=== PATIENT | female | born 1975 | race Caucasian/White ===

== ENCOUNTER 2017-06-25 10:30 | Outpatient (CLI) | payer OTHER | END 2017-06-25 10:31 | disposition home or self-care (01) | LOC: DI.S 10:30 | PROVIDERS: ATTEND Physician Assistant | DX: Z53.9 Procedure and treatment not carried out, unspecified reason (principal) ==

== ENCOUNTER 2017-08-29 10:07 | Outpatient (CLI) | payer BC, OTHER ==
--- NOTE | 2017-09-01 14:03 | Mammography Report ---
DIGITAL SCREENING MAMMOGRAM: 08/29/2017 CLINICAL INDICATION: 42-year-old with history of late childbearing for screening. COMPARISON: 06/2014, 08/2008, 02/2007. TECHNIQUE: Routine CC and MLO projections as well as bilateral laterally exaggerated craniocaudal views were obtained of the breasts. FINDINGS: Scattered fibroglandular tissue is present within the breasts. There are no dominant masses, suspicious microcalcifications, or secondary signs of malignancy. In comparison to the previous studies, there are no significant changes. IMPRESSION: NO MAMMOGRAPHIC EVIDENCE OF MALIGNANCY. NO SIGNIFICANT INTERVAL CHANGES. RECOMMENDATION: Screening mammography is recommended annually. BIRADS CATEGORY 1 - NEGATIVE. STANDARD QUALIFYING STATEMENTS: 1. This examination was reviewed with the aid of Computed-Aided Detection (CAD) . 2. A negative or benign imaging report should not delay biopsy if clinically suspicious findings are present. Consider surgical consultation if warranted. More than 5 % of cancers are not identified by imaging. 3. Dense breasts may obscure an underlying neoplasm. TD: 09/01/2017 14:03 JUDITH
== END 2017-08-29 10:08 | disposition home or self-care (01) ==
LOC: DI.S 10:07
PROVIDERS: ATTEND Physician Assistant
DX: Z12.31 Encounter for screening mammogram for malignant neoplasm of breast (principal)
CPT/HCPCS: 77067

== ENCOUNTER 2019-10-29 10:18 | Outpatient (CLI) | payer MEDICAID ==
--- NOTE | 2019-11-01 12:26 | Mammography Report ---
BILATERAL DIGITAL SCREENING MAMMOGRAM 3D/2D: 10/29/2019 Comparison is made to exams dated: 08/29/2017 mammogram, 07/05/2014 mammogram, and 08/12/2008 mammogram - [facility]. There are scattered fibroglandular elements in both breasts. No significant masses, calcifications, or other findings are seen in either breast. There has been no significant interval change. IMPRESSION: NEGATIVE There is no mammographic evidence of malignancy. A 1 year screening mammogram is recommended. This exam was interpreted at Station ID: [id number]. NOTE: For mammograms, a report in lay terms will be sent to the patient. Approximately 15% of breast malignancies will not be visualized mammographically. In the management of a palpable breast mass, a negative mammogram must not discourage biopsy of a clinically suspicious lesion. Electronically Signed By: Sarah shepard/miladisrad:10/29/2019 18:36:23 ACR BI-RADS Category 1: Negative 3341F PARENCHYMAL PATTERN: (A) - The breast(s) demonstrate(s) scattered fibroglandular densities. BI-RADS CATEGORY: (1) - 1 RECOMMENDATION: (ANNUAL) - Recommend routine annual screening mammography. [id number] 1 year screening LATERALITY: (B)
== END 2019-10-29 10:19 | disposition home or self-care (01) ==
LOC: DI 10:18
PROVIDERS: ATTEND Registered Nurse
DX: Z12.31 Encounter for screening mammogram for malignant neoplasm of breast (principal)
CPT/HCPCS: 77063; 77067

== ENCOUNTER 2019-11-05 11:30 | Outpatient (CLI) | payer MEDICAID ==
[2019-11-05 16:58] LABS: CANDIDA GROUP DNA NEGATIVE (NEGATIVE); CANDIDA KRUSEI DNA NEGATIVE (NEGATIVE); TRICHOMONAS VAGINALIS DNA NEGATIVE (NEGATIVE)
[2019-11-05 21:29] LABS: TRICHOMONAS VAGINALIS DNA NEGATIVE (NEGATIVE)
== END 2019-11-05 23:59 | disposition home or self-care (01) ==
LOC: LAB.R 11:30
PROVIDERS: ATTEND Family Medicine
DX: N76.0 Acute vaginitis (principal)
CPT/HCPCS: 87491; 87591; 87661; 87801

== ENCOUNTER 2020-01-21 07:01 | Outpatient (CLI) | payer MEDICAID ==
--- NOTE | 2020-01-24 07:20 | Ultrasound Report ---
PROCEDURE: Pelvic w/Transvaginal INDICATIONS: PAIN TECHNIQUE: Real-time scanning was performed of the pelvic organs, with image documentation. Additional endovagi nal scanning was necessary due to incomplete visualization of the adnexal and endometrial structures by transabdominal scanning. COMPARISON: 01/09/2016 FINDINGS: Transabdominal scanning: Limited scanning through the kidneys shows no hydronephrosis. No pathologi c free abdominal or pelvic fluid. There is a healed transverse scar without underlying flu id collection. Endovaginal scanning: Uterus: Uterus is anteverted and normal in size at 11.0 x 4.1 x 5.8 cm. A small amount of fluid in the endocervix. There is also focal hyperechoic vascular lesion within the endocervix measuring about 1.3 x 0.6 x 1.1 cm. There is a probable vascular stalk along the posterior wall. There are small pun ctate rounded echogenic foci within this area. Endometrium measures 11 mm in combined thickness. Ovaries: The right ovary was only seen by transabdominal imaging and measures 3.4 x 1.6 x 2.5 cm for a volume of about 7.3 cc. There is a single 11 mm dominant follicle. The left ovary measures 2.1 x 3.6 x 2.0 cm for a volume of 7.3 cc and contains a dominant follicle me asuring about 2.0 cm. Immediately cranial to the left ovary along the anterior abdominal wall, only i siri on the accompanying abdominal ultrasound, there is an ovoid cyst measuring about 3.3 x 1.5 x 2. 1 cm which corresponds the patient's localized left lower quadrant pain. No adjacent fluid. IMPRESSION: 1. Paraovarian cyst cranial to the left ovary along the anterior abdominal wall measures 3.3 cm and c orresponds the patient's site of tenderness. 2. Incidental note made of 13 mm probable endocervical polyp. Tissue acquisition is recommended. The cervix was not well imaged on the prior study and the chronicity of this finding is unknown. Reviewed by: Sarah Lafleur MD on 01/21/2020 11:40 AM PDT Approved by: Sarah Lafleur MD on 01/21/2020 11:40 AM PDT Station ID: [id number]
== END 2020-01-21 07:02 | disposition home or self-care (01) ==
LOC: DI 07:01
PROVIDERS: ATTEND Family Medicine
DX: N83.8 Other noninflammatory disorders of ovary, fallopian tube and broad ligament (principal); N84.1 Polyp of cervix uteri
CPT/HCPCS: 76700; 76830; 76856

== ENCOUNTER 2020-01-21 08:03 | Outpatient (CLI) | payer MEDICAID ==
--- NOTE | 2020-01-21 11:47 | Ultrasound Report ---
PROCEDURE: Abdomen Complete INDICATIONS: ABDOMINAL PAIN TECHNIQUE: Real-time scanning was performed of the abdominal and retroperitoneal organs, with image documentatio n. COMPARISON: Abdominal ultrasound 10/16/2015 FINDINGS: Liver: Liver is normal in size and homogeneous in echotexture. Gallbladder: The gallbladder demonstrates a normal wall thickness at 3 mm. No sludge. There are nonmo bile, nonshadowing echogenic foci arising along the gallbladder wall measuring 3 and 9 mm. No pericho lecystic fluid or sonographic Mcgill sign. Biliary ducts: Intrahepatic bile ducts are non-dilated. Extrahepatic bile duct caliber measures 3 m m. Normal is 6-7 mm or less in diameter, or 10 mm or less post-cholecystectomy. Pancreas: Visualized portions of the pancreas are sonographically normal. Spleen: Spleen is normal in size and homogeneous in echotexture. Kidneys: Kidneys are normal in size and echotexture. Right kidney measures 11.0 cm long; left kidne y measures 12.1 cm long. No hydronephrosis or nephrolithiasis. No solid masses. Aorta: Visualized aorta is normal in caliber at less than 3 cm. Iliacs: Proximal common iliac arteries are normal in caliber at less than 2.5 cm. IVC: Intrahepatic inferior vena cava is patent. Miscellaneous: No free abdominal fluid. Tender 3.3 cm left paraovarian cyst in the upper anterior l eft adnexa. IMPRESSION: 1. There are 2 discrete gallbladder polyps which were present previously, the larger has grown from 6 to 9 mm. 2. Interval resolution of gallbladder sludge. 3. Tender 3.3 cm anterior left adnexal paraovarian cyst. Reviewed by: Sarah Lafleur MD on 01/21/2020 11:45 AM PDT Approved by: Sarah Lafleur MD on 01/21/2020 11:45 AM PDT Station ID: [id number]
== END 2020-01-21 08:04 | disposition home or self-care (01) ==
LOC: DI 08:03
PROVIDERS: ATTEND Family Medicine
DX: K82.4 Cholesterolosis of gallbladder (principal); N83.8 Other noninflammatory disorders of ovary, fallopian tube and broad ligament; N84.1 Polyp of cervix uteri
CPT/HCPCS: 76700

== ENCOUNTER 2020-02-02 11:34 | Outpatient (CLI) | payer MEDICAID ==
[2020-02-02 11:58] LABS: BASOPHILS % (AUTO) 0.4 %; EOSINOPHILS % (AUTO) 0.4 %; HGB - HEMOGLOBIN 13.8 g/dL (12.0-16.0); LYMPHOCYTES % (AUTO) 23.9 %; MEAN CORPUSCULAR HEMOGLOBIN 31.5 pg (27.0-31.0); MEAN CORPUSCULAR HGB CONC 32.9 g/dL (32.0-36.0); MEAN CORPUSCULAR VOLUME 95.9 fL (81.0-99.0); MEAN PLATELET VOLUME 11.2 fL (7.9-10.8); MONOCYTES # (AUTO) 0.3 10^3/uL (0.0-1.0); MONOCYTES % (AUTO) 4.1 %; NEUTROPHILS # (AUTO) 5.9 10^3/uL (1.5-6.6); NEUTROPHILS % (AUTO) 70.7 %; PLT - PLATELET COUNT 247 10^3/uL (130-450); RED BLOOD COUNT 4.38 10^6/uL (4.20-5.40); RED CELL DISTRIBUTION WIDTH 11.9 % (12.0-15.0); WHITE BLOOD COUNT 8.3 x10^3/uL (4.8-10.8)
[2020-02-02 12:51] LABS: HCG,QUALITATIVE BLOOD NEGATIVE
== END 2020-02-02 11:35 | disposition home or self-care (01) ==
LOC: LAB 11:34
PROVIDERS: ATTEND Family Medicine
DX: R10.2 Pelvic and perineal pain (principal)
CPT/HCPCS: 36415; 84703; 85025

== ENCOUNTER 2020-02-07 07:08 | Outpatient (CLI) | payer MEDICAID ==
--- NOTE | 2020-02-07 07:55 | XRAY Report ---
PROCEDURE: Chest 2 View X-Ray INDICATIONS: CHEST TIGHTNESS TECHNIQUE: 2 view(s) of the chest. COMPARISON: None. FINDINGS: Surgical changes and devices: None. Lungs and pleura: No pleural effusions or pneumothorax. Lungs are clear. Mediastinum: Mediastinal contours are normal. Heart size is normal. Bones and chest wall: No suspicious bony abnormalities. Soft tissues appear unremarkable. IMPRESSION: No acute cardiopulmonary abnormality. Reviewed by: Stewart Nguyen MD on 02/07/2020 7:53 AM PDT Approved by: Stewart Nguyen MD on 02/07/2020 7:53 AM PDT Station ID: [id number]
== END 2020-02-07 07:09 | disposition home or self-care (01) ==
LOC: DI.S 07:08
PROVIDERS: ATTEND Registered Nurse
DX: R07.89 Other chest pain (principal)
CPT/HCPCS: 71046

== ENCOUNTER 2020-03-01 10:28 | Emergency (ER) | payer MEDICAID ==
[2020-03-01] MEDS ORDERED: KETOROLAC 30 MG/ML VIAL IVP STA (10:48)
--- NOTE | 2020-03-01 10:51 | ED Physician Documentation ---
PD HPI ABD PAIN - Stated complaint Stated Complaint: ABDOMINAL/BACK PX - History obtained from History obtained from: Patient - Additional information Additional information: 44-year-old woman who has had 2 C-sections in the past, the second was complicated by internal bleeding with hemorrhagic shock necessitating reopening of the incision as well as an exploratory laparotomy. Over the last month or 2 she has had progressive lower abdominal pain with a backache. She has been seen in the clinic and had labs done a CBC and a test that were normal. She had abdominal and pelvic sonography showing an endocervical polyp and a 3.3 cm left paraovarian cyst. She has an appointment for preop with the sales associate cashier and subsequently an appointment for the OR on March 16 for what sounds like hysteroscopy and biopsy of the polyp. She denies vaginal bleeding. Last menses was about the of last month. She is not on control but she has been abstinent. Denies vaginal discharge. No urinary complaints. Her bowel movements have been a little different than normal, sometimes looser and sometimes harder. Pain does not seem to change much with eating. Review of Systems Ten Systems: 10 systems reviewed and negative Constitutional: denies: Fever, Chills, Fatigue Cardiac: denies: Chest pain / pressure, Palpitations Respiratory: denies: Dyspnea, Cough GI: reports: Abdominal Pain, Constipation, Diarrhea. denies: Nausea, Vomiting : denies: Dysuria, Frequency Musculoskeletal: reports: Back pain PD PAST MEDICAL HISTORY - Past Medical History Cardiovascular: None Respiratory: None Endocrine/Autoimmune: None GI: None MANAGER AVIATION: None : None HEENT: None Psych: None Musculoskeletal: None Derm: None - Past Surgical History Past Surgical History: Yes Ortho: Rotator cuff repair /MANAGER AVIATION: section - Present Medications Home Medications: Ambulatory Orders Medication Instructions Recorded Confirmed Hydrocodone/Acetaminophen [Vicodin 1 - 2 each PO Q6HR PRN #12 tablet 05/28/14 5-300 mg Tablet] Dicyclomine HCl 20 mg PO QID PRN #15 tablet 03/01/20 - Allergies Allergies/Adverse Reactions: Allergies Allergy/AdvReac Type Severity Reaction Status Date / Time No Known Drug Allergies Allergy Verified 03/01/20 10:53 - Social History Does the pt smoke?: No Smoking Status: Never smoker Does the pt drink ETOH?: Yes Does the pt have substance abuse?: No - Immunizations Immunizations are current?: Yes - POLST Patient has POLST: No PD ED PE NORMAL - Vitals Vital signs reviewed: Yes - General General: Alert and oriented X 3, No acute distress - HEENT HEENT: PERRL, EOMI - Neck Neck: Supple, no meningeal sign, No bony TTP - Cardiac Cardiac: RRR, No murmur - Respiratory Respiratory: No respiratory distress, Clear bilaterally - Abdomen Abdomen: Normal bowel sounds, Soft, Non tender - Back Back: No CVA TTP, No spinal TTP - Derm Derm: Normal color, Warm and dry - Extremities Extremities: No edema, No calf tenderness / cord - Neuro Neuro: Alert and oriented X 3, Normal speech Results - Vitals Vitals: Vital Signs - 24 hr 03/01/20 10:35 Temperature 37.1 C Heart Rate 86 Respiratory 20 Rate Blood Pressure 128/85 H O2 Saturation 100 Oxygen O2 Source Room air - Labs Labs: Laboratory Tests 03/01/20 03/01/20 03/01/20 11:04 11:04 11:10 WBC 8.2 RBC 4.44 Hgb 13.8 Hct 42.1 MCV 94.8 MCH 31.1 H MCHC 32.8 RDW 11.9 L Plt Count 229 MPV 11.0 H Neut # (Auto) 6.1 Lymph # (Auto) 1.6 [place] # (Auto) 0.5 Eos # (Auto) 0.0 Baso # (Auto) 0.0 Absolute Nucleated RBC 0.00 Nucleated RBC % 0.0 Sodium 138 Potassium 3.4 L Chloride 101 Carbon Dioxide 22 Anion Gap 15.0 H BUN 14 Creatinine 0.6 Estimated GFR (MDRD) 109 Glucose 102 H Calcium 9.5 Total Bilirubin 1.4 H AST 16 ALT 12 Alkaline Phosphatase 49 Total Protein 7.5 Albumin 4.5 Globulin 3.0 Albumin/Globulin Ratio 1.5 Lipase 26 Urine Color YELLOW Urine Clarity HAZY Urine pH 6.0 Ur Specific [place] 1.020 Urine Protein NEGATIVE Urine Glucose (UA) NEGATIVE Urine Ketones NEGATIVE Urine Occult Blood NEGATIVE Urine Nitrite NEGATIVE Urine Bilirubin NEGATIVE Urine Urobilinogen 0.2 (NORMAL) Ur Leukocyte Esterase NEGATIVE Urine RBC None Seen Urine WBC 0-3 Ur Squamous Epith Cells FEW Squamous Urine Bacteria Rare Urine Mucus Few Strands Ur Microscopic Review INDICATED Urine Culture Comments NOT INDICATED Urine HCG, Qual NEGATIVE - Rads (name of study) CT A/P Radiology: EMP read contemporaneously (Hepatic steatosis, potential mild colitis, previously seen ovarian cyst is not noted.) PD MEDICAL DECISION MAKING - ED course ED course: 44-year-old woman with subacute complaints of bloating, abdominal and back pain, some changes in bowel movements. She has a benign exam. Labs only notable for very modest elevation in bilirubin may be related to hepatic steatosis seen on CT. Potential mild colitis on CT as well. Differential diagnosis still includes irritable or inflammatory bowel disease. Other pelvic issues. Has appointment with gynecology coming up and in the interim we will start some Bentyl as a trial pending follow-up with PCP for referral to surgery for consideration of colonoscopy. Departure - Departure Disposition: 01 Home, Self Care Clinical Impression: Abdominal pain Condition: Good Record reviewed to determine appropriate education?: Yes Instructions: ED Abdominal Pain Unkn Cause Prescriptions: Dicyclomine HCl 20 mg PO QID PRN #15 tablet PRN Reason: Abdominal Pain Comments: Talk with your doctor about a referral to a surgeon for consideration of colonoscopy, also consider further work-up on gallbladder polyp seen on previous studies. Return for new or worsening symptoms.
[2020-03-01] MEDS ORDERED: IOVERSOL 320 100 ML VIAL IVP ONE ×2 (11:07→19:01)
[2020-03-01 11:15] LABS: BASOPHILS % (AUTO) 0.4 %; EOSINOPHILS % (AUTO) 0.2 %; HGB - HEMOGLOBIN 13.8 g/dL (12.0-16.0); LYMPHOCYTES # (AUTO) 1.6 10^3/uL (1.5-3.5); LYMPHOCYTES % (AUTO) 18.9 %; MEAN CORPUSCULAR HEMOGLOBIN 31.1 pg (27.0-31.0); MEAN CORPUSCULAR HGB CONC 32.8 g/dL (32.0-36.0); MEAN CORPUSCULAR VOLUME 94.8 fL (81.0-99.0); MONOCYTES # (AUTO) 0.5 10^3/uL (0.0-1.0); MONOCYTES % (AUTO) 5.5 %; NEUTROPHILS # (AUTO) 6.1 10^3/uL (1.5-6.6); NEUTROPHILS % (AUTO) 74.6 %; PLT - PLATELET COUNT 229 10^3/uL (130-450); RED BLOOD COUNT 4.44 10^6/uL (4.20-5.40); RED CELL DISTRIBUTION WIDTH 11.9 % (12.0-15.0); WHITE BLOOD COUNT 8.2 x10^3/uL (4.8-10.8)
[2020-03-01 11:28] LABS: ALBUMIN 4.5 g/dL (3.2-5.5); ALBUMIN/GLOBULIN RATIO 1.5 (1.0-2.2); BILIRUBIN,TOTAL 1.4 mg/dL (0.2-1.0); CALCIUM 9.5 mg/dL (8.5-10.3); CREATININE 0.6 mg/dL (0.4-1.0); TOTAL PROTEIN 7.5 g/dL (6.7-8.2)
[2020-03-01 11:40] LABS: BILIRUBIN,URINE NEGATIVE (NEGATIVE); GLUCOSE, URINE (UA) NEGATIVE (NEGATIVE); KETONES,URINE (UA) NEGATIVE (NEGATIVE); LEUKOCYTE ESTERASE, URINE NEGATIVE (NEGATIVE); NITRITE,URINE NEGATIVE (NEGATIVE); OCCULT BLOOD,URINE NEGATIVE (NEGATIVE); PROTEIN,URINE NEGATIVE (NEGATIVE); UROBILINOGEN,URINE 0.2 (NORMAL) E.U./dL (NORMAL)
[2020-03-01 11:50] LABS: CLARITY,URINE HAZY (CLEAR)
[2020-03-01 11:51] LABS: HCG UR QUAL NEGATIVE
[2020-03-01 12:12] LABS: RBC,URINE None Seen /HPF (0-5)
[2020-03-01 12:13] LABS: BACTERIA,URINE Rare /HPF (None Seen); MUCUS,URINE Few Strands; SQUAMOUS EPITHELIAL CELL,UR FEW Squamous (<= Few)
--- NOTE | 2020-03-01 12:37 | CT Report ---
PROCEDURE: Abdomen/Pelvis W INDICATIONS: 44-year-old woman with lower abd pain. CONTRAST: IV CONTRAST: Optiray 320 ml: 100 PO CONTRAST: *NO PO CONTRAST TECHNIQUE: After the administration of IV contrast, 5 mm thick sections acquired from the diaphragms to the symp hysis. 5 mm thick coronal and sagittal reformats were acquired. For radiation dose reduction, the f ollowing was used: automated exposure control, adjustment of mA and/or kV according to patient size. COMPARISON: Ultrasound abdomen, 01/21/2020. Ultrasound pelvis, 01/21/2020. FINDINGS: Image quality: Excellent. ABDOMEN: Lung bases: Linear densities in the lingula are likely atelectasis. Heart size is normal. Solid organs: Mild hepatic steatosis. Liver and spleen are normal in size and enhancement. Gallblad ana is normal. Uterus is normal. Biliary system is non dilated. Pancreas enhances normally. No adr enal nodules. Kidneys demonstrate normal size and enhancement, without hydronephrosis. Peritoneum and bowel: There is appearance of mild diffuse colonic wall thickening involving the hepa tic flexure, transverse colon, splenic fracture, descending colon and sigmoid colon. Bowel loops demo nstrate normal caliber. No free fluid or air. Nodes and vessels: No retroperitoneal or mesenteric adenopathy by size criteria. Aorta and inferior vena cava are normal in size. Miscellaneous: No ventral hernias. PELVIS: Genitourinary: The uterus is unremarkable. No adnexal mass. No free fluid in pelvis. Bladder wall th ickness is normal. Miscellaneous: No inguinal hernias or adenopathy. Bones: No suspicious bony lesions. No vertebral body compression fractures. IMPRESSION: 1. Appearance of mild diffuse colonic wall thickening involving the hepatic flexure, transverse colon , splenic fracture, descending colon and sigmoid colon, suggesting mild colitis. Alternatively, the f inding could be caused by artifact due to inadequate distention. Recommend clinical correlation. 2. The 3.3 cm left paraovarian described on ultrasound is not visualized on the current CT. No pathol ogical free fluid in pelvis. 3. Mild hepatic steatosis. Reviewed by: Yue Sanchez MD on 03/01/2020 12:36 PM PDT Approved by: Yue Sanchez MD on 03/01/2020 12:36 PM PDT Station ID: [id number]
[2020-03-01 12:55] VITALS: BP 120/78
== END 2020-03-01 13:02 | disposition home or self-care (01) ==
LOC: ED 10:28
DX: R10.2 Pelvic and perineal pain (principal); K76.0 Fatty (change of) liver, not elsewhere classified; N84.0 Polyp of corpus uteri; N83.202 Unspecified ovarian cyst, left side; K59.00 Constipation, unspecified
CPT/HCPCS: 36415; 74177; 80053; 81001; 81025; 83690; 85025; 96374; 99284; Q9967; 81003; 87086

== ENCOUNTER 2020-03-08 17:04 | Outpatient (CLI) | payer MEDICAID ==
--- NOTE | 2020-03-09 16:50 | XRAY Report ---
PROCEDURE: Lumbar Spine 2 View INDICATIONS: BACK PAIN TECHNIQUE: 3 views of the lumbar spine were acquired. COMPARISON: None. FINDINGS: Bones: 5 [id number] vertebrae are present. There is minimal retrolisthesis at L1-L2 and L2-L3. No vertebral body compression fractures. No suspicious bony lesions. Disc spaces appear preserved. Soft tissues: Overlying bowel gas pattern is normal. No suspicious soft tissue calcifications. IMPRESSION: 1. Minimal retrolisthesis at L1-L2 and L2-L3. Reviewed by: Rudi Bonner MD on 03/09/2020 4:49 PM PDT Approved by: Rudi Bonner MD on 03/09/2020 4:49 PM PDT Station ID: [id number]
== END 2020-03-08 17:05 | disposition home or self-care (01) ==
LOC: DI.S 17:04
PROVIDERS: ATTEND Internal Medicine
DX: M43.16 Spondylolisthesis, lumbar region (principal); K92.1 Melena; R10.9 Unspecified abdominal pain
CPT/HCPCS: 36415; 72100; 82378

== ENCOUNTER 2020-03-14 11:53 | Outpatient (CLI) | payer MEDICAID ==
[2020-03-14 12:12] LABS: BASOPHILS # (AUTO) 0.1 10^3/uL (0.0-0.1); BASOPHILS % (AUTO) 0.5 %; EOSINOPHILS # (AUTO) 0.1 10^3/uL (0.0-0.7); EOSINOPHILS % (AUTO) 0.5 %; HGB - HEMOGLOBIN 13.5 g/dL (12.0-16.0); LYMPHOCYTES # (AUTO) 2.9 10^3/uL (1.5-3.5); MEAN CORPUSCULAR HEMOGLOBIN 31.1 pg (27.0-31.0); MEAN CORPUSCULAR HGB CONC 32.3 g/dL (32.0-36.0); MEAN CORPUSCULAR VOLUME 96.3 fL (81.0-99.0); MONOCYTES # (AUTO) 0.8 10^3/uL (0.0-1.0); NEUTROPHILS # (AUTO) 9.4 10^3/uL (1.5-6.6); NEUTROPHILS % (AUTO) 70.3 %; PLT - PLATELET COUNT 339 10^3/uL (130-450); RED BLOOD COUNT 4.34 10^6/uL (4.20-5.40); RED CELL DISTRIBUTION WIDTH 11.9 % (12.0-15.0); WHITE BLOOD COUNT 13.3 x10^3/uL (4.8-10.8)
== END 2020-03-14 11:54 | disposition home or self-care (01) ==
LOC: LAB 11:53
PROVIDERS: ATTEND Obstetrics & Gynecology
DX: Z01.812 Encounter for preprocedural laboratory examination (principal); N84.0 Polyp of corpus uteri; N94.5 Secondary dysmenorrhea; N94.3 Premenstrual tension syndrome; Z20.828 Contact with and (suspected) exposure to other viral communicable diseases
CPT/HCPCS: 36415; 85025

== ENCOUNTER 2020-03-16 06:35 | Day surgery (SDC) | payer MEDICAID ==
[~2020-03-16 06:35] MED LIST: ACETAMINOPHEN 1,000 MG/100 ML 100 ML IV ONE; CELECOXIB 100 MG CAPSULE PO ONE; GABAPENTIN 400 MG CAPSULE ONE
[2020-03-16] MEDS ORDERED: SILVER NITRATE APPLICATOR TOP ONE ×2 (06:58→09:04)
[2020-03-16] MEDS ORDERED: BUPIVACAINE 0.5% PF 30 ML VIAL ONE (06:58)
[2020-03-16 07:01] LABS: HCG UR QUAL NEGATIVE
[2020-03-16] MEDS ORDERED: LACTATED RINGERS 1,000 ML IV ONE (07:12)
[2020-03-16] MEDS ORDERED: KETAMINE 500 MG/10 ML VIAL IVP ONE (07:39)
[2020-03-16] MEDS ORDERED: fentaNYL 100 MCG/2 ML VIAL IVP ONE (07:39)
[2020-03-16] MEDS ORDERED: ACETAMINOPHEN 1,000 MG/100 ML 100 ML IV ONE (07:39)
[2020-03-16] MEDS ORDERED: MIDAZOLAM 2 MG/2 ML VIAL IVP ONE (07:39)
[2020-03-16] MEDS ORDERED: PROPOFOL 200 MG/20 ML VIAL IVP ONE (07:39)
[2020-03-16] MEDS ORDERED: NALOXONE 0.4 MG/ML VIAL IVP PRN (07:40)
[2020-03-16] MEDS ORDERED: fentaNYL 100 MCG/2 ML VIAL IVP PRN (07:40)
[2020-03-16] MEDS ORDERED: METOCLOPRAMIDE 10 MG/2 ML VIAL IVP PRN (07:40)
[2020-03-16] MEDS ORDERED: ATROPINE ABBOJECT 1 MG/10 ML SYRINGE IVP PRN (07:40)
[2020-03-16] MEDS ORDERED: ONDANSETRON 4 MG/2 ML VIAL IVP PRN (07:40)
[2020-03-16] MEDS ORDERED: MORPHINE 2 MG/ML CARPUJECT IVP PRN (07:40)
[2020-03-16] MEDS ORDERED: ePHEDrine 50 MG/ML VIAL IVP PRN (07:40)
[2020-03-16] MEDS ORDERED: HYDROmorphone 0.5 MG/0.5 ML SYRINGE IVP PRN (07:40)
--- NOTE | 2020-03-16 07:40 | ANESTHESIA ---
Pre-Anesthesia VS, & Labs - Diagnosis uterine polyps - Procedure Hysteroscopy, D&C Polypectomy Vital Signs: Temp Pulse Resp BP Pulse Ox 37.2 C 84 16 138/91 H 100 03/16/20 06:51 03/16/20 06:51 03/16/20 06:51 03/16/20 06:51 03/16/20 06:51 Height: 5 ft 6 in Weight (kg): 67.7 kg Body Mass Index: 24.0 BMI Classification: Healthy weight - NPO >8 hours - Is Patient ?: No - Lab Results Current Lab Results: Laboratory Tests 03/16/20 07:08: POC Whole Bld Glucose 96 Lab results reviewed: Yes Home Medications and Allergies Home Medications: Ambulatory Orders predniSONE [Prednisone] 10 - 20 mg PO DAILY 03/15/20 predniSONE [Prednisone] 10 - 20 mg PO DAILY 03/15/20 Allergies/Adverse Reactions: Allergies Allergy/AdvReac Type Severity Reaction Status Date / Time No Known Drug Allergies Allergy Verified 03/01/20 10:53 Anes History & Medical History - Anesthetic History Anesthesia Complications: reports: No previous complications Family history of Anesthesia Complications: Denies Family history of Malignant Hyperthermia: Denies - Medical History Cardiovascular: reports: None Pulmonary: reports: None Gastrointestinal: reports: None Urinary: reports: None Musculoskeletal: reports: None Endocrine/Autoimmune: reports: None Blood Disorders: reports: None Skin: reports: None Smoking Status: Never smoker - Surgical History General: Other Gynecologic: section Orthopedic: Rotator cuff repair Exam General: Alert, Oriented x3, Cooperative, No acute distress Dental: WNL Mouth Openin Fingerbreadth Neck Mobility: Normal Mallampati classification: II Respiratory: Lungs clear, Normal breath sounds, No respiratory distress, No accessory muscle use Cardiovascular: Regular rate, Normal S1, Normal S2, No murmurs Plan Anesthesia Type: MAC Consent for Procedure(s) Verified and Reviewed: Yes Code Status: Attempt Resuscitation ASA classification: 1-Healthy patient Is this case an emergency?: No
[2020-03-16] MEDS ORDERED: LACTATED RINGERS 1,000 ML IV SCH (08:00)
[2020-03-16] MEDS ORDERED: BUPIVACAINE 0.5% PF 30 ML VIAL SUBQ ONE ×2 (08:28→08:51)
[2020-03-16] MEDS ORDERED: LACTATED RINGERS 800 ML IV ONE (09:05)
[2020-03-16] MEDS ORDERED: oxyCODONE 5 MG TABLET PO PRN (09:22)
--- NOTE | 2020-03-16 09:34 | OPERATIVE REPORT ---
Operative Report - General Procedure Date: 03/16/20 Planned Procedure: Hysteroscopy D&C with possible polypectomy/myomectomy/excision of scar tissue Pre-Op Diagnosis: Dysfunctional uterine bleeding/pelvic pain Procedure Performed: Hysteroscopy D&C with excision of scar tissue Post Op Diagnosis: same - Procedure Note Primary Surgeon: Janee Underwood MD Anesthesia Provider: Matt Cruz CRNA Anesthesia Technique: Local, MAC Pathology: uterine contents IV Fluids (mL): 1,000 Estimated Blood Loss (mL): 10 Urine Output (mL): 200 Indications: Patient is a 44 yo here for hysteroscopy D&C with polypectomy. US 01/21/20: Uterus 11cm with a 13mm polyp likely. Endometrium 11mm. Since 4y ago, cycles have become difficult with bloating, excessive blood loss, dysmenorrhea. Impacting life and work. Uses a diva cup, volume is "incredibile" changing the cup q2h, the medium cup. . 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 Using a heating pad, if in bad pain will do ibuprofen but it doesn't seem to help much. Just "suffers through it". US 01/21/20: Uterus 11cm with a 13mm polyp likely. Endometrium 11mm. Patient has considered her options and wants to proceed with minimally invasive procedures. Findings: Lower uterine segment was fixed close with a small orifice, opening obscured by apparent scar tissue. (Suspect uterus was sutured close during prior post-op complications after prior .) Scar tissue released with Myosure and opened to reveal uterine cavity. Normal appearing uterine cavity with thick endometrium. Bilateral tubal ostia visualized. Lower uterine segment and endocervical canal patent postprocedure. Complications: None - Other Other Information/Narrative: Risks benefits and alternatives to the procedure were reviewed. Consent was again confirmed. Patient was taken to the operating room where she underwent general anesthesia. She was positioned in dorsolithotomy position with legs resting in yellowfin stirrups. She was prepped and draped in the usual sterile fashion. Preoperative antibiotics were not indicated. Preoperative checklist was performed. Exam under anesthesia was performed. Speculum was placed in the vagina and the cervix was visualized. Single-tooth tenaculum was placed at the anterior cervical lip. Paracervical block was administered using a total of 20 cc of 0.5% bupivicaine with epinephrine was injected at the 4:00 and 8:00 positions lateral to the portio of the cervix. The cervical os was serially dilated with Hegar dilators to accommodate the caliber of the diagnostic hysteroscope. Uterus sounded to 9 cm. The hysteroscope was inserted and findings were noted as above. The hysteroscopic morcellator was inserted through the operative port. The scar tissue in the lower uterine sgement were morcellated under direct visualization. Once scar tissue was released, the endocervical canal became patent and the uterine cavity was accessible. D&C was performed under direct visualization with the Myosure morcellator. Uterine cavity was smooth at close of the procedure. Hysteroscope was removed. All instruments were removed from the uterus. Tenaculum was removed. Tenaculum sites were noted to be hemostatic after application of direct pressure and silver nitrate. All instruments were removed from the vagina. Procedure was well-tolerated without complication. Fluid deficit: 270 cc NS
[2020-03-16 10:03] VITALS: BP 136/82
--- NOTE | 2020-03-16 10:41 | ANESTHESIA POST OP EVALUATION ---
Anesthesia Post Eval - Post Anesthesia Eval Vitals: Last Vital Signs Temp 36.8 C 03/16/20 10:02 Pulse 69 03/16/20 10:02 Resp 16 03/16/20 10:02 BP 136/82 H 03/16/20 10:02 Pulse Ox 100 03/16/20 10:02 CV Function Including HR & BP: positive: Stable Pain Control: positive: Satisfactory Nausea & Vomiting: positive: Negative Mental Status: positive: Baseline Hydration Status: Satisfactory Anesthesia Complications: positive: None
--- NOTE | 2020-03-22 13:50 | HISTORY & PHYSICAL EXAMINATION ---
HPI - History of Present Illness HPI Comment/Other: CC: uterine polyp, dysmenorrhea, PMDD HPI: Pt is here today for a preop consult for a hysteroscopy D&C ...................................................................SARA Ronquillo March 07, 2020 3:07 PM Patient is a 44 yo here for preoperative assessment for hysteroscopy D&C with polypectomy. Patient was last seen in clinic on 02/09/[address] Licea. The following hx was relayed: US 01/21/20: Uterus 11cm with a 13mm polyp likely. Endometrium 11mm. Left paraovarian cyst 3.3cm. HCG neg, Hct 42 Since 4y ago, cycles have become difficult. The week before gets an anxiety flare that is hard to manage. Lots of bloating and blood loss. Bad cramping. Impacting life and work. Thought maybe a hyst would be a good idea. Menses last 5d. Generally monthly but days can fluctuate. One 9d cycle. Uses a diva cup, volume is "incredibile" changing the cup q2h, the medium cup. Flow is that heavy for a few days. No bleeding between menses. Hx of anxiety, has tried meds in the past including daily meds and CBD. Nothing seems to work except for benzos taken PRN. Recent providers have declined to Rx more. During the week prior to menses has panic attacks 1-2x. Lots of stress with 202 and with 's brain injury. Feels hormonally off the week before. 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 Using a heating pad, if in bad pain will do ibuprofen but it doesn't seem to help much. Just "suffers through it". Patient has considered her options and wants to proceed with minimally invasive procedure with hysteroscopy D&C/polypectomy. Has a lot of anxiety due to prior postop complications. Has significant anxiety and will likely need anxiolytics in preop. No change in health hx since time of prior exam. Allergies: * WHEAT (Critical) * COW MILK (Critical) * SOY (Critical) Medications: CELECOXIB 200 MG ORAL CAPSULE (CELECOXIB) Take one capsule by mouth once daily with food for arthritis or pain; Route: ORAL PREDNISONE 20 MG ORAL TABLET (PREDNISONE) three tablets orally qd; Route: ORAL ALPRAZOLAM 0.5 MG TABS (ALPRAZOLAM) take 1 tablet by mouth once daily if needed for PANIC ATTACKS PREDNISONE 10 MG ORAL TABLET (PREDNISONE) Take 4 tabs by mouth for 4 days, then 3 for 4 days, then 2 for 4 days, then 1 for 4 days, then stop; Route: ORAL DICYCLOMINE HCL 20 MG ORAL TABLET (DICYCLOMINE HCL) Take one tab by mouth up to four times daily; Route: ORAL * BLOOD BUILDER TABLET Take one tab by mouth daily MULTIVITAMIN ADULT ORAL TABLET (MULTIPLE VITAMINS-MINERALS) Take one tab by mouth daily; Route: ORAL FLONASE ALLERGY RELIEF 50 MCG/ACT NASAL SUSPENSION (FLUTICASONE PROPIONATE) Take one spray in each nostril once daily for allergies; Route: NASAL Problems: Preoperative exam (ICD-V72.84) (UDH90-D71.818) Abdominal swelling (ICD-789.30) (GAY78-A31.00) Sacroiliac pain (ICD-724.6) (PJC35-D03.3) Back pain (ICD-724.5) (FOT22-U38.9) Abdominal pain (ICD-789.00) (BPR53-N18.9) Blood in stool (ICD-578.1) (HSW05-O62.1) Screening for cervical cancer (ICD-V76.2) (DQN05-U56.4) Screening examination for venereal disease (ICD-V74.5) (VDQ06-P52.3) PMDD (ICD-625.4) (KBG58-I79.3) Uterine polyp (ICD-621.0) (OEO14-A23.0) Secondary dysmenorrhea (ICD-625.3) (BOA52-C06.5) Anemia (ICD-285.9) (IHA51-S77.9) Shortness of breath (SOB) (ICD-786.05) (SJM51-W40.02) Chest tightness (ICD-786.59) (KGV86-L13.89) DUB (ICD-626.8) (GPR98-I66.8) Family history of breast cancer (ICD-V16.3) (JZO73-Q70.3) Breast lump (ICD-611.72) (PRC61-Q31.0) Pelvic pain (ICD-625.9) (IXM58-R49.2) Vaginitis (ICD-616.10) (JOZ50-C78.0) Anxiety (ICD-300.00) (RPP03-T57.9) Osteopenia (ICD-733.90) (FHK80-N18.80) Preventive care (ICD-V70.0) (VWT63-F55.00) Blood in stool (ICD-578.1) (EDF37-X75.1) Diarrhea, recurrent (ICD-787.91) (COT83-R27.7) Constipation (ICD-564.00) (RBF05-T02.00) Abdominal pain (ICD-789.00) (EGZ33-R04.9) Risk Factors: Smoked Tobacco Use: Former smoker Cigarettes: Yes Years Smoked: 2 Smokeless Tobacco Use: Never Passive Smoke Exposure: no Exercise: yes Type of Exercise: hike, bike, paddle Seatbelt Use: 100 % Sun Exposure: frequently Alcohol Use: yes Vital Signs: Patient Profile: 44 Years Old Female Height: 66.5 inches Weight: 151 pounds BMI: 24.09 BP sittin / 78 Cuff size: regular Vitals Entered By: SARA Ronquillo (March 07, 2020 3:08 PM) Meds Reviewed: Done Allergies Reviewed: Done Past Medical History: Rotator cuff Night sweats Tinnitus Constipation Diarrhea Osteopenia Last Pap . Mammo 2017 Food allergies to wheat, milk, soy gall bladder polyps Anxiety Fibrocystic Breasts Headache/Migraine Ovarian Cysts Past Surgical History: x 2 Complication of 2nd requiring vertical incision laparotomy for a bleed with hemoperitoneum.. Had a full-body blood transfusion after 5L EBL. 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 Physical Constitutional: GEN: NAD HEAD: NCAT EYES: No scleral icterus or conjunctival injection NECK: No cervical LAD or TM CV: RRR RESP: CTAB, normal effort ABD: S&NT/ND PSYCH: appropriate affect NEURO: alert and oriented, normal gait and coordination EXT: WWP Impression & Recommendations: Problem # 1: Preoperative exam (ICD-V72.84) (FJM21-H16.818) Reviewed risks/benefits/alternatives to hysteroscopy/polpectomy Risks include, but are not limited to, bleeding, infection, damage to neatby tissue and organs. On average, expected EBL is minimal. In the event of an unanticipated blood loss, patient is willing to undergo transfusion. Risks of blood transfusion include infection as well as transfusion reaction Risk of HIV 1/2million nationwide Risk of Hepatitis 1/1 million Risks of transfusion reaction and mgt reviewed Infection risk low given that no incisions yamlika be made and we will be using physiologic orifices. Will provide IV abx in the event of uterine perforation. Damage to nearby tissue and organs was reviewed with emphasis on uterine perforation and management, which can include surgical intervention based on bleeding risk. Reviewed management of complications and efforts to avoid such outcomes but reviewed that they may occur despite our best efforts Patient was in agreement and written informed consent was obtained. PMH/PSH - Past Medical History Cardiovascular: positive: None Respiratory: positive: None Endocrine/Autoimmune: positive: None GI: positive: None COMMISSION FOR THE BLIND DIRECTOR: positive: None : positive: None HEENT: positive: None Psych: positive: None Musculoskeletal: positive: None Derm: positive: None MRSA Hx?: No - Past Surgical History General: positive: Other Ortho: positive: Rotator cuff repair /COMMISSION FOR THE BLIND DIRECTOR: positive: section Social & Family Hx - Social History Does the pt smoke?: No Smoking Status: Never smoker Does the pt drink ETOH?: Yes Does the pt have substance abuse?: No - POLST Patient has POLST: No Meds/Allgy - Home Medications Home Medications: Ambulatory Orders Medication Instructions Recorded Confirmed Dicyclomine HCl 20 mg PO QID PRN #15 tablet 03/01/20 03/15/20 predniSONE [Prednisone] 10 - 20 mg PO DAILY 03/15/20 03/15/20 Acetaminophen [Tylenol] 650 mg PO Q6H PRN #30 tablet 03/16/20 Gabapentin [Neurontin] 100 mg PO TID PRN #30 capsule 03/16/20 Ibuprofen [Motrin] 600 mg PO Q6H PRN #90 tab 03/16/20 oxyCODONE [Roxicodone] 5 mg PO Q4H PRN #24 tablet 03/16/20 Gabapentin [Neurontin] 300 mg PO TID #30 capsule 03/19/20 Meloxicam [Mobic] 7.5 mg PO BID PRN #20 tablet 03/19/20 Oxycodone HCl/Acetaminophen 1 - 2 each PO Q6H PRN #10 tablet 03/19/20 [Percocet 5-325 mg Tablet] predniSONE [Deltasone] 10 mg PO [id number] #42 tab 03/19/20 - Allergies Allergies/Adverse Reactions: Allergies Allergy/AdvReac Type Severity Reaction Status Date / Time No Known Drug Allergies Allergy Verified 03/01/20 10:53
== END 2020-03-16 06:36 | disposition home or self-care (01) ==
LOC: SDS 06:35
PROVIDERS: ATTEND Obstetrics & Gynecology
PROC: 0UDB8ZZ Extraction of Endometrium, Via Natural or Artificial Opening Endoscopic (ICD-10-PCS; principal; 2020-03-16 07:30)
DX: N93.8 Other specified abnormal uterine and vaginal bleeding (principal); N94.5 Secondary dysmenorrhea; N94.3 Premenstrual tension syndrome; Z87.891 Personal history of nicotine dependence; F41.9 Anxiety disorder, unspecified
CPT/HCPCS: 58558; 81025; A9270; J0131; J7120

== ENCOUNTER 2020-03-19 10:57 | Emergency (ER) | payer MEDICAID ==
--- NOTE | 2020-03-19 12:32 | ED Physician Documentation ---
PD HPI BACK PAIN - Stated complaint Stated Complaint: BACK & HIP PAIN - Chief complaint Chief Complaint: Back Pain - History obtained from History obtained from: Patient - History of Present Illness Timing - details: Gradual onset Pain level max: 10 Pain level now: 3 Location: Lower, Left Quality: Pain, Spasm, Sharp Associated symptoms: No: Fever, Weakness, Numbness, Incontinent of urine, Unable to urinate, Hematuria, Incontinent of stool Improves with: Rest Worsened by: Movement Contributing factors: Other (recent surgery for uterine mass) - Additional information Additional information: 44-year-old female presents to the emergency department with low lumbar pain radiating down to the left hip and down the left leg. Worse with movement, better with rest. History of sciatica in the past. She states she is also being worked up for possible ulcerative colitis. No loss of bowel or bladder control. The pain seems to have worsened since her uterine surgery. No abdominal pain. No vomiting. No diarrhea. 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 : None HEENT: None Psych: None Musculoskeletal: None Derm: None Other Past Medical History: recent diagnosis of colitis, awaiting colonoscopy in the upcoming weeks - Past Surgical History Past Surgical History: Yes Ortho: Rotator cuff repair /SENIOR MAJOR GIFTS OFFICER: section - Present Medications Home Medications: Ambulatory Orders Medication Instructions Recorded Confirmed Dicyclomine HCl 20 mg PO QID PRN #15 tablet 03/01/20 03/15/20 predniSONE [Prednisone] 10 - 20 mg PO DAILY 03/15/20 03/15/20 Acetaminophen [Tylenol] 650 mg PO Q6H PRN #30 tablet 03/16/20 Gabapentin [Neurontin] 100 mg PO TID PRN #30 capsule 03/16/20 Ibuprofen [Motrin] 600 mg PO Q6H PRN #90 tab 03/16/20 oxyCODONE [Roxicodone] 5 mg PO Q4H PRN #24 tablet 03/16/20 Gabapentin [Neurontin] 300 mg PO TID #30 capsule 03/19/20 Meloxicam [Mobic] 7.5 mg PO BID PRN #20 tablet 03/19/20 Oxycodone HCl/Acetaminophen 1 - 2 each PO Q6H PRN #10 tablet 03/19/20 [Percocet 5-325 mg Tablet] predniSONE [Deltasone] 10 mg PO [id number] #42 tab 03/19/20 - Allergies Allergies/Adverse Reactions: Allergies Allergy/AdvReac Type Severity Reaction Status Date / Time No Known Drug Allergies Allergy Verified 03/01/20 10:53 - Social History Does the pt smoke?: No Smoking Status: Never smoker Does the pt drink ETOH?: Yes Does the pt have substance abuse?: No - Immunizations Immunizations are current?: Yes - POLST Patient has POLST: No PD ED PE NORMAL - Vitals Vital signs reviewed: Yes - General General: Alert and oriented X 3, No acute distress - HEENT HEENT: Moist mucous membranes - Neck Neck: Supple, no meningeal sign - Cardiac Cardiac: RRR, Strong equal pulses - Respiratory Respiratory: No respiratory distress, Clear bilaterally - Abdomen Abdomen: Soft, Non tender, Non distended - Back Back: No spinal TTP (No midline tenderness to palpation or percussion. No muscle spasm.) - Derm Derm: Warm and dry - Extremities Extremities: No calf tenderness / cord, Other (Normal bilateral lower extremity patellar and ankle jerk reflexes. Normal great toe extension bilaterally. 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 No acute focal neurological deficits. Ambulating without difficulty. Will prescribe anti- inflammatories, steroids for home. We will increase her gabapentin dose as well. Have her follow-up with her doctor for further care including possible testing for ankylosing spondylitis and likely MRI of her lumbar spine. Patient counseled regarding signs and symptoms for which I believe and urgent re- evaluation would be necessary. Patient with good understanding of and agreement to plan and is comfortable going home at this time This document was made in part using voice recognition software. While efforts are made to proofread this document, sound alike and grammatical errors may occur. Departure - Departure Disposition: 01 Home, Self Care Clinical Impression: Sciatica Qualifiers: Laterality: left Qualified Code(s): M54.32 - Sciatica, left side Condition: Good Instructions: ED Sciatica Follow-Up: Johnny Ponce MD [Primary Care Provider] - Within 1 week Prescriptions: predniSONE [Deltasone] 10 mg PO [id number] #42 tab Meloxicam [Mobic] 7.5 mg PO BID PRN #20 tablet PRN Reason: Pain Gabapentin [Neurontin] 300 mg PO TID #30 capsule Oxycodone HCl/Acetaminophen [Percocet 5-325 mg Tablet] 1 - 2 each PO Q6H PRN #10 tablet PRN Reason: pain Comments: Follow-up with your doctor for further care. You likely need testing for ankylosing spondylitis and likely an MRI of your back. Return if you worsen. Do not drink alcohol or drive while on narcotic pain medicine. Note that many narcotic pain relievers also contain tylenol/acetaminophen. Please ensure that your total dose of acetaminophen from all sources does not exceed 3 grams (3000mg) per day. You may constipated on this medication, take a stool softener such as "Colace" twice a day while you are on it. Also recommend a nuyn-aoo-okzfndz laxative such as senna or MiraLAX any day that you do not have a bowel movement. If you received narcotic pain medication in the emergency department, do not drive or operate machinery for the next 24 hours.
[2020-03-19 12:41] VITALS: BP 130/74
== END 2020-03-19 12:40 | disposition home or self-care (01) ==
LOC: ED 10:57
DX: M54.42 Lumbago with sciatica, left side (principal)
CPT/HCPCS: 99284

== ENCOUNTER 2020-03-22 11:31 | Outpatient (CLI) | payer MEDICAID ==
--- NOTE | 2020-03-22 13:19 | XRAY Report ---
PROCEDURE: SI Joints INDICATIONS: SACROILIAC PAIN TECHNIQUE: 3 views of the sacroiliac joints were acquired. COMPARISON: Lumbar spine 03/08/2020 FINDINGS: Bones: No bony erosions or ankylosis. No suspicious bony lesions. No fractures. Soft tissues: Overlying bowel gas pattern is normal. No suspicious soft tissue densities. IMPRESSION: Sacroiliac joints are patent. No visualized acute fracture or dislocation. However, occult injury can not be excluded. Recommend short interval imaging follow-up in 7-10 days as clinically indicated for additional evaluation. Reviewed by: Siena Eisenberg MD on 03/22/2020 1:18 PM PST Approved by: Siena Eisenberg MD on 03/22/2020 1:18 PM PST Station ID: [id number]
== END 2020-03-22 11:32 | disposition home or self-care (01) ==
LOC: DI.S 11:31
PROVIDERS: ATTEND Internal Medicine
DX: M53.3 Sacrococcygeal disorders, not elsewhere classified (principal)
CPT/HCPCS: 36415; 72202; 85651; 86140; 86812

== ENCOUNTER 2020-04-07 09:43 | Day surgery (SDC) | payer MEDICAID ==
[2020-04-07] MEDS ORDERED: MIDAZOLAM 2 MG/2 ML VIAL IVP ONE (09:44)
[2020-04-07] MEDS ORDERED: fentaNYL 250 MCG/5 ML VIAL IVP ONE (09:44)
[2020-04-07] MEDS ORDERED: LACTATED RINGERS 1,000 ML IV ONE ×2 (10:15→11:31)
[2020-04-07 11:49] VITALS: BP 122/79
== END 2020-04-07 09:44 | disposition home or self-care (01) ==
LOC: SDS 09:43
PROVIDERS: ATTEND Surgery
PROC: 0DBL8ZX Excision of Transverse Colon, Via Natural or Artificial Opening Endoscopic, Diagnostic (ICD-10-PCS; 2020-04-07)
PROC: 0DBB8ZX Excision of Ileum, Via Natural or Artificial Opening Endoscopic, Diagnostic (ICD-10-PCS; 2020-04-07)
PROC: 0DBM8ZX Excision of Descending Colon, Via Natural or Artificial Opening Endoscopic, Diagnostic (ICD-10-PCS; 2020-04-07)
PROC: 0DBK8ZX Excision of Ascending Colon, Via Natural or Artificial Opening Endoscopic, Diagnostic (ICD-10-PCS; principal; 2020-04-07 10:45)
DX: R10.9 Unspecified abdominal pain (principal); R14.0 Abdominal distension (gaseous); K92.1 Melena; R19.4 Change in bowel habit; Z87.891 Personal history of nicotine dependence
CPT/HCPCS: 45380; J3010; J7120

== ENCOUNTER 2020-07-11 07:01 | Outpatient (CLI) | payer MEDICAID ==
--- NOTE | 2020-07-11 10:46 | Ultrasound Report ---
PROCEDURE: Abdomen Limited INDICATIONS: GALLBLADDER POLYP TECHNIQUE: Real-time focused scanning was performed of the abdomen, with image documentation. COMPARISON: CT 03/01/2020, abdominal ultrasound 01/21/2020 FINDINGS: Liver measures normal and craniocaudad length of 15.4 cm, but the hepatic echotexture is e chogenic, consistent with fatty infiltration. The gallbladder contains mobile stones measuring approx imately 5 mm and a single small 3 mm polyp. The gallbladder wall is normal in thickness. The common d uct is not distended at 3.3 mm. The pancreas appears normal as does the right kidney measuring 11.0 c m in length and having a cortical thickness of 1 cm IMPRESSION: 3 mm gallbladder polyp again noted, mobile stones measuring 5 mm are present within the gallbladder l umen. No biliary distention is seen. Fatty infiltration within the liver. The liver itself is not enl arged. Reviewed by: Patric Clifton MD on 07/11/2020 10:45 AM PST Approved by: Patric Clifton MD on 07/11/2020 10:45 AM PST Station ID: [id number]
== END 2020-07-11 07:02 | disposition home or self-care (01) ==
LOC: DI 07:01
PROVIDERS: ATTEND Specialist
DX: K80.20 Calculus of gallbladder without cholecystitis without obstruction (principal); K76.0 Fatty (change of) liver, not elsewhere classified

== ENCOUNTER 2021-03-02 08:32 | Outpatient (CLI) | payer MEDICAID ==
[2021-03-02 14:37] LABS: ALBUMIN 4.5 g/dL (3.2-5.5); ALBUMIN/GLOBULIN RATIO 1.6 (1.0-2.2); ALKALINE PHOSPHATASE 51 IU/L (42-121); ALT ALANINE AMINOTRANSFERASE 13 IU/L (10-60); AST ASPARTATE AMINOTRANSFERASE 16 IU/L (10-42); BILIRUBIN,TOTAL 0.5 mg/dL (0.2-1.0); BUN - BLOOD UREA NITROGEN 15 mg/dL (6-20); CALCIUM 8.9 mg/dL (8.5-10.3); CARBON DIOXIDE - CO2 24 mmol/L (21-32); CHLORIDE 106 mmol/L (101-111); CHOL/HDL RATIO 2.1 (<4.4); CHOLESTEROL 207 mg/dL; CREATININE 0.7 mg/dL (0.4-1.0); GFR - MDRD 91 (>89); GLUCOSE 106 mg/dL (70-100); HDL CHOLESTEROL 97 mg/dL; LDL CHOLESTEROL,CALCULATED 97 mg/dL; POTASSIUM 4.2 mmol/L (3.5-5.0); SODIUM 139 mmol/L (135-145); TOTAL PROTEIN 7.3 g/dL (6.7-8.2); TRIGLYCERIDES 66 mg/dL; VLDL CHOLESTEROL 13 mg/dL
[2021-03-02 14:44] LABS: ESTIMATED AVERAGE GLUCOSE 103 mg/dL (70-100); HEMOGLOBIN A1c% 5.2 % (4.27-6.07)
[2021-03-02 14:45] LABS: THYROID STIMULATING HORMONE 2.9 uIU/mL (0.34-5.60)
[2021-03-02 14:50] LABS: FERRITIN 45.1 ng/mL (11.0-306.8)
[2021-03-02 14:59] LABS: BASOPHILS % (AUTO) 0.5 %; EOSINOPHILS # (AUTO) 0.1 10^3/uL (0.0-0.7); EOSINOPHILS % (AUTO) 1.1 %; HCT - HEMATOCRIT 43.7 % (37.0-47.0); HGB - HEMOGLOBIN 13.9 g/dL (12.0-16.0); LYMPHOCYTES # (AUTO) 1.5 10^3/uL (1.5-3.5); LYMPHOCYTES % (AUTO) 24.3 %; MEAN CORPUSCULAR HEMOGLOBIN 31.1 pg (27.0-31.0); MEAN CORPUSCULAR HGB CONC 31.8 g/dL (32.0-36.0); MEAN CORPUSCULAR VOLUME 97.8 fL (81.0-99.0); MEAN PLATELET VOLUME 11.6 fL (7.9-10.8); MONOCYTES # (AUTO) 0.4 10^3/uL (0.0-1.0); MONOCYTES % (AUTO) 6.6 %; NEUTROPHILS # (AUTO) 4.2 10^3/uL (1.5-6.6); NEUTROPHILS % (AUTO) 67.3 %; PLT - PLATELET COUNT 241 10^3/uL (130-450); RED BLOOD COUNT 4.47 10^6/uL (4.20-5.40); RED CELL DISTRIBUTION WIDTH 11.9 % (12.0-15.0); WHITE BLOOD COUNT 6.2 x10^3/uL (4.8-10.8)
== END 2021-03-02 08:33 | disposition home or self-care (01) ==
LOC: LAB.S 08:32
PROVIDERS: ATTEND Internal Medicine
DX: D64.9 Anemia, unspecified (principal); Z79.899 Other long term (current) drug therapy; Z13.220 Encounter for screening for lipoid disorders; L65.9 Nonscarring hair loss, unspecified; Z83.3 Family history of diabetes mellitus
CPT/HCPCS: 36415; 80050; 80061; 82728; 83036; 83721

== ENCOUNTER 2021-05-10 08:00 | Outpatient (CLI) | payer MEDICAID ==
--- NOTE | 2021-05-10 15:30 | XRAY Report ---
PROCEDURE: Ribs w/PA Chest RT INDICATIONS: CONTUSION OF RIGHT FRONT WALL OF THORAX TECHNIQUE: 3 views of the right ribs were acquired, along with a single view chest. COMPARISON: None FINDINGS: Surgical changes and devices: None. Bones and chest wall: No fractures or dislocations. No suspicious bony lesions. Overlying soft tis sues appear unremarkable. Lungs and pleura: No pleural effusions or pneumothorax. Lungs appear clear. Mediastinum: Mediastinal contours appear normal. Heart size is normal. IMPRESSION: 1. No displaced rib fracture. 2. No visible underlying chest trauma. Reviewed by: Sarah Lafleur MD on 05/10/2021 3:29 PM PST Approved by: Sarah Lafleur MD on 05/10/2021 3:29 PM PST Station ID: [id number]
== END 2021-05-10 23:59 | disposition home or self-care (01) ==
LOC: DI.S 08:00
PROVIDERS: ATTEND Emergency Medicine
DX: S20.211A Contusion of right front wall of thorax, initial encounter (principal)

== ENCOUNTER 2021-07-24 13:47 | Outpatient (CLI) | payer MEDICAID ==
--- NOTE | 2021-07-25 08:14 | Mammography Report ---
BILATERAL DIGITAL SCREENING MAMMOGRAM 3D/2D WITH EXAGGERATED CC: 07/24/2021 CLINICAL: Routine screening. Family history of breast cancer. Comparison is made to exams dated: 10/29/2019 mammogram, 08/29/2017 mammogram, and 07/05/2014 mammogram - [facility]. There are scattered fibroglandular elements in both breasts. No significant masses, calcifications, or other findings are seen in either breast. There has been no significant interval change. IMPRESSION: NEGATIVE There is no mammographic evidence of malignancy. A 1 year screening mammogram is recommended. This exam was interpreted at Station ID: [id number]. NOTE: For mammograms, a report in lay terms will be sent to the patient. Approximately 15% of breast malignancies will not be visualized mammographically. In the management of a palpable breast mass, a negative mammogram must not discourage biopsy of a clinically suspicious lesion. Electronically Signed By: Rudi Bonner M.D. ddp/penrad:07/24/2021 15:35:07 ACR BI-RADS Category 1: Negative 3341F PARENCHYMAL PATTERN: (A) - The breast(s) demonstrate(s) scattered fibroglandular densities. BI-RADS CATEGORY: (1) - 1 RECOMMENDATION: (ANNUAL) - Recommend routine annual screening mammography. [id number] 1 year screening LATERALITY: (B)
== END 2021-07-24 13:48 | disposition home or self-care (01) ==
LOC: DI.S 13:47
PROVIDERS: ATTEND Nurse Practitioner Obstetrics & Gynecology
DX: Z12.89 Encounter for screening for malignant neoplasm of other sites (principal); Z12.31 Encounter for screening mammogram for malignant neoplasm of breast; Z80.3 Family history of malignant neoplasm of breast

== ENCOUNTER 2021-09-05 08:51 | Outpatient (CLI) | payer MEDICAID ==
--- NOTE | 2021-09-05 14:53 | Ultrasound Report ---
PROCEDURE: Pelvic w/Transvaginal INDICATIONS: DYSMENORRHEA TECHNIQUE: Real-time scanning was performed of the pelvic organs, with image documentation. Additional endovagi nal scanning was necessary due to incomplete visualization of the adnexal and endometrial structures by transabdominal scanning. COMPARISON: None. FINDINGS: Limited scanning through the kidneys shows no hydronephrosis. No pathologic free abdominal or pelvic fluid. Uterus: Uterus is normal in size at 13.6 x 3.8 x 5.1 cm. Uterus is anteverted. The endometrium measu res 11.7 mm in combined thickness. Uterus has homogeneous echotexture. Fluid noted in the cervical ca nal. Ovaries: Right ovary measures 2.2 x 1.4 x 2.3 cm total volume of 3.7 cc. Left ovary measures 3.4 x 2 .1 x 2.5 cm total volume of 9.3 cc. There is a 1.8 x 1.5 x 2.0 cm dominant follicle in left ovary. Le ss than 12 total follicles are identified in each ovary. Other: No free pelvic fluid. IMPRESSION: 1. Fluid in the cervical canal possibly related to menstruation. Please correlate with clinical findi ngs. 2. Ovaries are sonographically normal. Reviewed by: Christal Sher MD, PhD on 09/05/2021 2:51 PM PDT Approved by: Christal Sher MD, PhD on 09/05/2021 2:51 PM PDT Station ID: [id number]
== END 2021-09-05 08:52 | disposition home or self-care (01) ==
LOC: DI 08:51
PROVIDERS: ATTEND Nurse Practitioner Obstetrics & Gynecology
DX: N94.6 Dysmenorrhea, unspecified (principal)

== ENCOUNTER 2021-11-28 08:08 | Outpatient (CLI) | payer MEDICAID ==
[2021-11-28 15:15] LABS: CHOL/HDL RATIO 2.6 (<4.4); CHOLESTEROL 199 mg/dL; HDL CHOLESTEROL 76 mg/dL; LDL CHOLESTEROL,CALCULATED 105 mg/dL; LDL/HDL RATIO 1.4 (<4.4); TRIGLYCERIDES 91 mg/dL; VLDL CHOLESTEROL 18 mg/dL
[2021-11-28 15:17] LABS: THYROID STIMULATING HORMONE 3.54 uIU/mL (0.34-5.60)
== END 2021-11-28 08:09 | disposition home or self-care (01) ==
LOC: LAB.S 08:08
PROVIDERS: ATTEND Obstetrics & Gynecology
DX: Z00.00 Encounter for general adult medical examination without abnormal findings (principal); N94.6 Dysmenorrhea, unspecified
CPT/HCPCS: 36415; 80061; 83721; 84443

== ENCOUNTER 2021-12-03 18:41 | Outpatient (CLI) | payer MEDICAID ==
--- NOTE | 2021-12-04 16:18 | Ultrasound Report ---
PROCEDURE: Pelvic w/Transvaginal INDICATIONS: DYSMENORRHEA TECHNIQUE: Real-time scanning was performed of the pelvic organs, with image documentation. Additional endovagi nal scanning was necessary due to incomplete visualization of the adnexal and endometrial structures by transabdominal scanning. COMPARISON: None. FINDINGS: Uterus: Uterus is anteverted and mildly enlarged in size at 10.2 x 4.3 x 5.4 cm. The myometrium is heterogeneous. The endometrium measures 11.6 mm in combined thickness. Ovaries: The right ovary measures 2.3 x 1.8 x 3.0 cm, with a calculated ovarian volume of 6.4 cc. T he left ovary measures 2.9 x 2.0 x 2.3 cm, with a calculated ovarian volume of 7.1 cc. There is a foc us of decreased echogenicity within left ovary measuring 1.9 x 1.6 x 1.5 cm. In addition, similar foc us is noted in the adnexal region measuring 1.6 x 0.9 x 1.3 cm. Less than 12 follicles can be seen in each ovary. Other: No pathologic free abdominal or pelvic fluid. IMPRESSION: Left ovarian simple cyst as well as simple left adnexal cyst. Reviewed by: Siena Eisenberg MD on 12/04/2021 4:16 PM PDT Approved by: Siena Eisenberg MD on 12/04/2021 4:16 PM PDT Station ID: [id number]
== END 2021-12-03 18:42 | disposition home or self-care (01) ==
LOC: DI 18:41
PROVIDERS: ATTEND Obstetrics & Gynecology
DX: N83.292 Other ovarian cyst, left side (principal); N94.89 Other specified conditions associated with female genital organs and menstrual cycle

== ENCOUNTER 2022-07-18 14:15 | Outpatient (CLI) | payer MEDICAID ==
[2022-07-19 22:37] LABS: BACTERIAL VAGINOSIS DNA NEGATIVE (NEGATIVE)
[2022-07-19 22:38] LABS: CANDIDA GLABRATA DNA NEGATIVE (NEGATIVE); CANDIDA GROUP DNA NEGATIVE (NEGATIVE); CANDIDA KRUSEI DNA NEGATIVE (NEGATIVE); TRICHOMONAS VAGINALIS DNA NEGATIVE (NEGATIVE)
== END 2022-07-18 23:59 | disposition home or self-care (01) ==
LOC: LAB.R 14:15
PROVIDERS: ATTEND Nurse Practitioner
DX: N89.8 Other specified noninflammatory disorders of vagina (principal)
CPT/HCPCS: 81514

== ENCOUNTER 2022-09-09 12:02 | Outpatient (CLI) | payer MEDICAID ==
--- NOTE | 2022-09-10 10:22 | Mammography Report ---
BILATERAL DIGITAL DIAGNOSTIC MAMMOGRAM 3D/2D: 09/09/2022 CLINICAL: Family history of breast cancer. Routine screening. Comparison is made to exams dated: 07/24/2021 mammogram, 10/29/2019 mammogram, 08/29/2017 mammogram, an d 07/05/2014 mammogram - [facility]. There are scattered areas of fibroglandular density in both breasts (category b / 25%-50% glandular t issue). An asymmetry in the left breast laterally on the cc view appear similar to prior studies and addition al views demonstrated no abnormality. No significant masses, calcifications, or other findings are se en in either breast. IMPRESSION: NEGATIVE There is no mammographic evidence of malignancy. A 1 year screening mammogram is recommended. Based on the Tyrer Cuzick model (a risk assessment model) the patients lifetime risk is 14.7% and he r 10 year risk is 2.9%. According to the ACR, ACS, and NCCN guidelines, an annual breast MRI exam li ng with mammogram is recommended if the patients lifetime risk is 20% or greater. This exam was interpreted at Station ID: [id number]. NOTE: For mammograms, a report in lay terms will be sent to the patient. Approximately 15% of breast malignancies will not be visualized mammographically. In the management of a palpable breast mass, a negative mammogram must not discourage biopsy of a clinically suspicious lesion. Electronically Signed By: Ravi Mcdonald M.D. acr/:09/09/2022 14:05:28 ACR BI-RADS Category 1: Negative 3341F PARENCHYMAL PATTERN: (A) - The breast(s) demonstrate(s) scattered fibroglandular densities. BI-RADS CATEGORY: (1) - 1 Mammogram [id number] 1 year screening LATERALITY: (B)
== END 2022-09-09 12:03 | disposition home or self-care (01) ==
LOC: DI 12:02
PROVIDERS: ATTEND Nurse Practitioner
DX: N60.19 Diffuse cystic mastopathy of unspecified breast (principal); Z80.3 Family history of malignant neoplasm of breast

== ENCOUNTER 2024-01-23 07:05 | Outpatient (CLI) | payer MEDICAID ==
[2024-01-23 14:57] LABS: BASOPHILS % (AUTO) 0.6 %; EOSINOPHILS # (AUTO) 0.1 10^3/uL (0.0-0.7); EOSINOPHILS % (AUTO) 0.9 %; HCT - HEMATOCRIT 41.5 % (37.0-47.0); HGB - HEMOGLOBIN 13.1 g/dL (12.0-16.0); LYMPHOCYTES # (AUTO) 1.7 10^3/uL (1.5-3.5); LYMPHOCYTES % (AUTO) 30.9 %; MEAN CORPUSCULAR HEMOGLOBIN 30.8 pg (27.0-31.0); MEAN CORPUSCULAR HGB CONC 31.6 g/dL (32.0-36.0); MEAN CORPUSCULAR VOLUME 97.6 fL (81.0-99.0); MEAN PLATELET VOLUME 11.4 fL (7.9-10.8); MONOCYTES # (AUTO) 0.3 10^3/uL (0.0-1.0); MONOCYTES % (AUTO) 5.3 %; NEUTROPHILS # (AUTO) 3.4 10^3/uL (1.5-6.6); NEUTROPHILS % (AUTO) 62.1 %; PLT - PLATELET COUNT 262 10^3/uL (130-450); RED BLOOD COUNT 4.25 10^6/uL (4.20-5.40); RED CELL DISTRIBUTION WIDTH 12.2 % (12.0-15.0); WHITE BLOOD COUNT 5.4 x10^3/uL (4.8-10.8)
[2024-01-23 15:24] LABS: THYROID STIMULATING HORMONE 2.33 uIU/mL (0.34-5.60)
[2024-01-23 15:30] LABS: FERRITIN 39.9 ng/mL (11.0-306.8)
[2024-01-24 07:17] LABS: ESTRADIOL 63.5 pg/mL (.)
== END 2024-01-23 07:06 | disposition home or self-care (01) ==
LOC: LAB.S 07:05
PROVIDERS: ATTEND Nurse Practitioner
DX: R53.83 Other fatigue (principal)
CPT/HCPCS: 36415; 82166; 82670; 82728; 83001; 83002; 84402; 84403; 84443; 85025